=== PATIENT | male | born 1940 | race Caucasian/White ===

== ENCOUNTER 2016-12-23 11:24 | Day surgery (SDC) | payer MEDICARE, OTHER ==
[~2016-12-23] VITALS: Ht 170.2 cm; Wt 75.0 kg
[2016-12-23] VITALS (10 sets, daily range): BP systolic 125–169; BP diastolic 55–77; PULSE 60–98; TEMP 97.2–98
[~2016-12-23 11:24] MED LIST: ASPIRIN 81M81 MG/TA2 PO; LIPITOR 80MG80 MG PO; LOPRESSOR 225 MG/TAB PO; PRILOTC PO; SEMPREX D PO
[2016-12-23] MEDS ORDERED: ALLEGRA 180MG180 MG PO (12:19)
[2016-12-23] MEDS ORDERED: FLONASEALLERGY NS (12:20)
[2016-12-24 02:08] VITALS: BP 139/67; PULSE 59; TEMP 98.5
[2016-12-24 05:49] VITALS: BP 115/64; PULSE 60; TEMP 98.1
[2016-12-24 09:50] VITALS: BP 135/61; PULSE 61; TEMP 97.7
[2016-12-24] MEDS ORDERED: NORCO 325 MG-51 TAB PO (10:17)
== END 2016-12-24 10:35 | disposition home or self-care (01) ==
LOC: SDCO 11:24 → SURG 17:03 → SDCO 12-24 10:35
DX: K80.10 Calculus of gallbladder with chronic cholecystitis without obstruction (principal); Z95.1 Presence of aortocoronary bypass graft; K21.9 Gastro-esophageal reflux disease without esophagitis; I25.10 Atherosclerotic heart disease of native coronary artery without angina pectoris; E78.00 Pure hypercholesterolemia, unspecified
CPT/HCPCS: OP; A9284; J0690; J1100; J2175; J2405; J2550; J2704; J7120; Q9967